=== PATIENT | female | born 1995 | race Caucasian/White ===

== ENCOUNTER 2017-10-27 02:27 | Emergency (ER) | payer MEDICAID ==
[~2017-10-27] VITALS: Ht 157.5 cm; Wt 63.0 kg
[2017-10-27 04:20] LABS: BASOPHILS % 0.9 % (0.0-2.0); EOSINOPHILS % 0.7 % (0.0-5.0); HEMATOCRIT. 34.8 % (36.0-48.0); HEMOGLOBIN. 11.3 g/dL (12.0-16.0); LYMPHOCYTES % 30.6 % (20.0-50.0); MEAN CORPUSCULAR HEMOGLOBIN 24.7 pg (28.0-32.0); MEAN CORPUSCULAR VOLUME 75.9 fL (81.0-99.0); MEAN PLATELET VOLUME 8.3 fl (7.4-10.4); MONOCYTES % 6.4 % (2.0-8.0); NEUTROPHILS % 61.4 % (40.0-76.0); PLATELET 216 x1000/uL (130-400); RED BLOOD CELL COUNT 4.59 mill/uL (4.2-5.4); RED CELL DISTRIBUTION WIDTH 18.8 % (11.6-14.6)
[2017-10-27 04:27] LABS: CHLORIDE 103 mEq/L (98-107)
[2017-10-27 04:28] LABS: INR 1.1; PROTHROMBIN TIME 10.6 sec (9.1-11.1)
[2017-10-27 04:51] LABS: B-HCG QUANTITATIVE 3006 mIU/mL (<3)
[2017-10-27] MEDS ORDERED: ACETAMINOPHEN 325MG TABLET PO ONE (05:15)
[2017-10-27 05:20] VITALS: BP 121/69
[2017-10-27 05:20] LABS: CLARITY URINE CLEAR (CLEAR); COLOR URINE YELLOW (YELLOW); KETONES URINE NEGATIVE (NEGATIVE); LEUKOCYTE ESTERASE URINE TRACE (NEGATIVE); NITRITE URINE NEGATIVE (NEGATIVE); OCCULT BLOOD URINE NEGATIVE (NEGATIVE); PROTEIN URINE NEGATIVE (NEGATIVE); SPECIFIC GRAVITY URINE 1.016 (1.005-1.030); UROBILINOGEN URINE 0.2 E.U./dL (0.2-1.0)
== END 2017-10-27 06:49 | disposition home or self-care (01) ==
LOC: ER 02:27
DX: O26.891 Other specified pregnancy related conditions, first trimester (principal); R10.33 Periumbilical pain; O34.81 Maternal care for other abnormalities of pelvic organs, first trimester; Z3A.01 Less than 8 weeks gestation of pregnancy
CPT/HCPCS: 36415; 76801; 80053; 81003; 81025; 83690; 84702; 85025; 85610; 99285

== ENCOUNTER 2017-11-12 20:15 | Emergency (ER) | payer MEDICAID ==
[~2017-11-12] VITALS: Ht 157.5 cm; Wt 60.0 kg
[2017-11-12 22:44] VITALS: BP 107/55
== END 2017-11-12 23:45 | disposition home or self-care (01) ==
LOC: ER 23:07
DX: O22.01 Varicose veins of lower extremity in pregnancy, first trimester (principal); M72.2 Plantar fascial fibromatosis; Z3A.08 8 weeks gestation of pregnancy
CPT/HCPCS: 99283